=== PATIENT | female | born 1995 | race African-American/Black ===

== ENCOUNTER 2017-03-13 17:58 | Emergency (ER) | payer MEDICAID ==
[~2017-03-13] VITALS: Ht 162.6 cm; Wt 58.1 kg
[~2017-03-13 17:58] MED LIST: ACETAMINOPHEN-1 EAC1 ORAL; CEFTIN500 MG ORAL; IBUPROFEN400 MG ORAL; IBUPROFEN600 MG ORAL; KEFLEX500 MG ORAL; NKM; TRAMADOL HCL50 MG ORAL; ZOFRAN ODT4 MG ORAL
[2017-03-13] MEDS ORDERED: IBUPROFEN600 MG ORAL (18:23)
[2017-03-13] MEDS ORDERED: TAMIFLU75 MG ORAL (18:23)
--- NOTE | 2017-03-13 18:27 | Emergency Room Report ---
History of Present Illness General Chief Complaint: General Complaint Source: Patient Present Illness HPI 21-year-old female, no significant past medical history presenting with body ache, runny nose, cough. States that her little brother is sick with the same symptoms. She has no appetite for solid foods but is able to drink fluids. Complaining of subjective fevers and chills. No headache no neck pain Allergies: Coded Allergies: NO KNOWN ALLERGIES (Unverified Allergy, Unknown, 12/02/14) Patient History Past Medical History: see triage record Past Surgical History: none Pertinent Family History: none Last Menstrual Period: 03/01/17 Now: No Reviewed Nursing Documentation: PMH: Agreed, PSxH: Agreed Nursing Documentation-PMH Past Medical History: No Stated History Review of Systems All Other Systems: negative except mentioned in HPI Physical Exam Vital Signs Date Time Temp Pulse Resp B/P (MAP) Pulse Ox O2 Delivery O2 Flow Rate FiO2 03/13/17 18:04 100.0 107 20 119/80 97 Room Air Sp02 EP Interpretation: reviewed, normal General Appearance: alert, GCS 15, non-toxic, mild distress Head: normocephalic, atraumatic Eyes: bilateral eye normal inspection, bilateral eye PERRL, bilateral eye EOMI ENT: normal ENT inspection, normal pharynx, normal voice, moist mucus membranes Neck: normal inspection, full range of motion, supple Respiratory: normal inspection, lungs clear, normal breath sounds, no respiratory distress, no retraction, no wheezing, speaking full sentences, chest symmetrical Cardiovascular #1: normal inspection, regular rate, rhythm, no edema, normal capillary refill Cardiovascular #2: 2+ radial (R), 2+ radial (L) Gastrointestinal: normal inspection, non tender, soft, non-distended, no guarding Musculoskeletal: normal inspection, back normal, normal range of motion, non- tender Neurologic: normal inspection, alert, oriented x3, responsive, motor strength/ tone normal, sensory intact, normal gait, speech normal Psychiatric: normal inspection, judgement/insight normal, memory normal Skin: normal inspection, normal color, no rash, warm/dry, well hydrated, normal turgor Medical Decision Making Diagnostic Impression: Primary Impression: Flu-like symptoms ER Course 21-year-old female with fever chills cough runny nose myalgias DDX: Flulike illness Plan: Motrin ER course: Patient has remained stable during ED stay. She appears nontoxic, has family with her Disposition: Patient is to be discharged to home. Prescriptions given are Tamiflu and Motrin Patient is instructed to follow up with their primary care doctor within 5 days. Strict return precautions discussed with patient such as fever, chills, worsening/severe pain, chest pain, SOB, nausea, vomiting, which may indicate severe illness. Patient verbalizes understanding and agrees with plan. Please note that this Emergency Department Report was dictated using [employer] technology software, occasionally this can lead to erroneous entry secondary to interpretation by the dictation equipment Last Vital Signs Date Time Temp Pulse Resp B/P (MAP) Pulse Ox O2 Delivery O2 Flow Rate FiO2 03/13/17 18:04 100.0 107 20 119/80 97 Room Air Disposition: HOME, SELF-CARE Condition: Stable Scripts Ibuprofen* (MOTRIN*) 600 Mg Tablet 600 MG ORAL Q6H Y for For Pain, #30 TAB Prov: Tejinder Hoang M.D. 03/13/17 Oseltamivir Phosphate (Tamiflu) 75 Mg Capsule 75 MG ORAL TWICE A DAY for 5 Days, #10 CAP 0 Refills Prov: Tejinder Hoang M.D. 03/13/17 Patient Instructions: Viral Respiratory Infection, [id number] Additional Instructions: Please follow up with your primary care doctor within 3 days. Please come back to the emergency room if you are having severe/worsening pain, headache, chest pain, shortness of breath, or intractable nausea or vomiting Tejinder Hoang M.D. Mar 13, 2017 18:26
[2017-03-13 18:32] VITALS: BP 119/80
== END 2017-03-13 18:32 | disposition home or self-care (01) ==
LOC: EMR 18:25
DX: J11.1 Influenza due to unidentified influenza virus with other respiratory manifestations (principal)
CPT/HCPCS: 99283

== ENCOUNTER 2017-06-28 19:32 | Emergency (ER) | payer MEDICAID ==
[~2017-06-28] VITALS: Ht 162.6 cm; Wt 59.0 kg
[~2017-06-28 19:32] MED LIST changes: +TAMIFLU75 MG ORAL
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
[2017-06-28] MEDS ORDERED: Methocarbamol 500mg tab ORAL ONE (19:45)
[2017-06-28] MEDS ORDERED: Acetaminophen 500mg (ES) tab ORAL ONE (19:45)
[2017-06-28 19:47] VITALS: BP 126/79
[2017-06-28] MEDS ORDERED: METHOCARBAMOL500 MG ORAL (20:56)
[2017-06-28] MEDS ORDERED: TYLENOL EXTRA500 MG ORAL (20:56)
[2017-06-28] MEDS ORDERED: LIDOCAINE700 M1 TP (20:56)
[2017-06-28 21:06] VITALS: BP 126/79
--- NOTE | 2017-06-29 09:10 | Diagnostic Imaging Report ---
Indication: Pain status post injury Technique: XRAY T Spine 2v Comparison: None Findings: There is mild scoliosis of the lower thoracic/upper lumbar spine. There is no evidence of acute fracture or traumatic malalignment. Imaged lungs are clear. The apex of the heart and stomach bubble are noted to be on the right. This may be due to technical error, with the maintenance department technician inadvertently flipping the image in the mediolateral plane one processing. No hard/physical side marker was placed on the film at acquisition. A digital left-sided marker was applied afterwards however uncertain if this is placed correctly. As such, dextrocardia and situs inversus cannot entirely be excluded. IMPRESSION: No evidence of acute fracture or traumatic malalignment. The apex of the heart and stomach bubble are noted to be on the right. This is most commonly due to a technical error, with the technologist inadvertently flipping the image in the mediolateral plane one processing. No hard/physical side marker was placed on the film at acquisition. As such, dextrocardia with situs inversus cannot entirely be excluded. Correlation with clinical history or prior/repeat chest radiograph recommended for further evaluation. This is slightly discrepant from the preliminary interpretation of the treating ER clinician, as documented in the electronic medical record. Findings discussed with Dr. Hoang of the ER 9:00 AM on 06/29/2017.
--- NOTE | 2017-06-29 09:16 | Diagnostic Imaging Report ---
Indication: Pain status post injury Technique: XRAY Wrist Complete R Comparison: No prior right wrist radiographs available for comparison. Correlation made to left wrist radiographs of 01/02/2015 Findings: There is no acute fracture or dislocation. Alignment and joint spaces are preserved. No radiopaque foreign body seen. Impression: No evidence of acute fracture or dislocation.
== END 2017-06-28 21:06 | disposition home or self-care (01) ==
LOC: EMR 19:47
DX: M25.531 Pain in right wrist (principal); M54.9 Dorsalgia, unspecified; V43.62XA Car passenger injured in collision with other type car in traffic accident, initial encounter; Y92.410 Unspecified street and highway as the place of occurrence of the external cause
CPT/HCPCS: 29540; 72070; 99284

== ENCOUNTER 2017-06-30 13:38 | Emergency (ER) | payer MEDICAID ==
[~2017-06-30] VITALS: Ht 162.6 cm; Wt 59.0 kg
[~2017-06-30 13:38] MED LIST changes: +LIDOCAINE700 M1 TP; +METHOCARBAMOL500 MG ORAL; +TYLENOL EXTRA500 MG ORAL
[2017-06-30 13:51] VITALS: BP 134/87
[2017-06-30] MEDS ORDERED: Norco 5mg/325mg tab ORAL ONE (14:00)
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
--- NOTE | 2017-06-30 14:58 | Diagnostic Imaging Report ---
Indication: Right ankle pain Technique: 3 views of the right ankle Comparison: none Findings: No acute fractures. No dislocations. The joint spaces are preserved Impression: No acute bony trauma
[2017-06-30 15:16] VITALS: BP 129/82
== END 2017-06-30 15:31 | disposition home or self-care (01) ==
LOC: EMR 14:36
DX: S93.401A Sprain of unspecified ligament of right ankle, initial encounter (principal); V43.62XA Car passenger injured in collision with other type car in traffic accident, initial encounter; Y92.410 Unspecified street and highway as the place of occurrence of the external cause
CPT/HCPCS: 99283